=== PATIENT | male | born 1960 | race African-American/Black ===

== ENCOUNTER 2017-02-15 17:09 | Emergency (ER) | payer MEDICAID ==
[~2017-02-15] VITALS: Ht 185.4 cm; Wt 105.0 kg
[~2017-02-15 17:09] MED LIST: AMOXICILLIN/CL875 MG OR; AMOXICILLIN500 MG PO; AUGMENTIN875TAB PO; CEPHALEXIN500 MG OR; FLEXERIL OR; FLEXERIL PO; INDOMETHACIN50 MG OR; JANUVIA100 MG PO; LANTUS SOLOSTAR SC; MEDDOSEPAK PO; METFORMIN500 MG PO; NAPROSYN500 MG OR; NAPROSYN500 MG PO; NAPROXEN500 MG PO; NEXIUM40 M1 PO; NO; NO MEDS; OMEPRAZOLE20 MG OR; OMEPRAZOLE20 MG PO; PENICILLN VK500 M1 OR; ROBITUSSIN AC10 ML PO; SIMVASTATIN20 MG PO; ULTRAM50 M1 PO; ULTRAM50 MG OR; [UNRECOGNIZED DRUG - REMARK]
[2017-02-15] MEDS ORDERED: DILAUDID8 MG PO (17:33)
[2017-02-15 17:47] VITALS: BP 130/80
[2017-02-15] MEDS ORDERED: PERCOCET 5/325M1 TAB PO (18:08)
== END 2017-02-15 18:09 | disposition home or self-care (01) | DRG 552 ==
LOC: ED 17:09
DX: M54.5 Low back pain (principal)

== ENCOUNTER 2017-03-08 00:24 | Emergency (ER) | payer MEDICAID ==
[~2017-03-08] VITALS: Ht 185.4 cm; Wt 91.8 kg
[~2017-03-08 00:24] MED LIST changes: +DILAUDID8 MG PO; +PERCOCET 5/325M1 TAB PO
[2017-03-08 00:39] VITALS: BP 131/85
== END 2017-03-08 00:45 | disposition home or self-care (01) | DRG 605 ==
LOC: ED 00:24
DX: S60.417A Abrasion of left little finger, initial encounter (principal); X58.XXXA Exposure to other specified factors, initial encounter; Y93.89 Activity, other specified; Y92.009 Unspecified place in unspecified non-institutional (private) residence as the place of occurrence of the external cause

== ENCOUNTER 2017-03-20 15:03 | Emergency (ER) | payer SELFPAY ==
[~2017-03-20] VITALS: Ht 185.4 cm; Wt 102.0 kg
[2017-03-20] MEDS ORDERED: FLEXERIL PO (16:24)
[2017-03-20 16:27] VITALS: BP 135/77
== END 2017-03-20 16:32 | disposition home or self-care (01) | DRG 93 ==
LOC: ED 15:03
DX: G89.29 Other chronic pain (principal); M54.5 Low back pain; F17.210 Nicotine dependence, cigarettes, uncomplicated

== ENCOUNTER 2017-05-30 23:40 | Emergency (ER) | payer SELFPAY ==
[~2017-05-30] VITALS: Ht 185.4 cm; Wt 88.2 kg
[2017-05-31] MEDS ORDERED: BACTRIM DS1 TAB PO (00:20)
[2017-05-31 00:30] VITALS: BP 128/87
== END 2017-05-31 00:42 | disposition home or self-care (01) | DRG 728 ==
LOC: ED 23:40
DX: N45.1 Epididymitis (principal); R10.31 Right lower quadrant pain

== ENCOUNTER → 2017-11-18 | Outpatient (REF) | payer MEDICARE, MEDICAID ==
[~2017-11-18] MED LIST changes: +BACTRIM DS1 TAB PO
== END | disposition home or self-care (01) ==
LOC: DI 16:10
PROVIDERS: ATTEND Family Medicine
DX: M79.631 Pain in right forearm (principal)

== ENCOUNTER 2019-05-10 | Emergency (ER) | payer MEDICARE ==
[2019-05-10] MEDS ORDERED: METFORMIN500 MG PO (10:24)
[2019-05-10] MEDS ORDERED: METFORMIN HCL1000 MG PO (10:44)
== END 2019-05-10 11:49 | disposition home or self-care (01) ==
DX: S89.92XA Unspecified injury of left lower leg, initial encounter (principal); E11.9 Type 2 diabetes mellitus without complications; I10 Essential (primary) hypertension; F17.200 Nicotine dependence, unspecified, uncomplicated; Y08.02XA Assault by strike by baseball bat, initial encounter; Y92.009 Unspecified place in unspecified non-institutional (private) residence as the place of occurrence of the external cause
CPT/HCPCS: L1830

== ENCOUNTER 2023-03-25 14:23 | Emergency (ER) | payer MEDICARE ==
[~2023-03-25] VITALS: Ht 185.4 cm; Wt 72.5 kg
[~2023-03-25 14:23] MED LIST changes: +METFORMIN HCL1000 MG PO
[2023-03-25] MEDS ORDERED: KETOROLAC TROMETHAMINE 15 MG/ML SDV IV STA (14:55)
[2023-03-25 15:18] LABS: BASO% 0.3 % (0-3); HEMATOCRIT 38.2 % (39.0-50.0); HEMOGLOBIN 13.1 g/dl (14.0-18.0); IMMATURE GRANULOCYTES 0.3 % (0.0-5.0); LYMPH% 17.9 % (15-41); MEAN CORPUSCULAR HGB 25.7 pG CALC (26.0-32.0); MEAN CORPUSCULAR HGB CONC 34.3 g/dL CAL (32.0-36.0); MONO% 8.2 % (2-13); NEUT# 4.99 thou/uL (1.82-7.42); NEUT% 72.3 % (42-76); RED BLOOD COUNT 5.09 mill/uL (4.70-6.10); RED CELL DISTRI WIDTH 13.3 % (11.5-15.5)
[2023-03-25 15:32] LABS: BUN 19 mg/dL (8-23); BUN/CREATININE RATIO 31 (12-20 (CALC)); CHLORIDE 98 mmol/l (95-108); CREATININE 0.6 mg/dL (0.7-1.3); GFR FOR AFR.AMER. > 60 ML/MIN (>=60 (CALC)); GFR OTHER RACES > 60 ML/MIN (>=60 (CALC)); LIPASE 72 u/l (23-300); SGOT/AST 33 u/l (19-48); SODIUM 136 mmol/l (137-146); TOTAL PROTEIN 6.8 g/dL (6.3-8.2)
[2023-03-25 15:35] LABS: ALKALINE PHOSPHATASE 134 u/l (38-126); ANION GAP 10 (6-22 (CALC)); BILIRUBIN, TOTAL 0.8 mg/dL (0.2-1.3); CARBON DIOXIDE 31 mmol/l (22-30); POTASSIUM 3.1 mmol/l (3.5-5.1)
[2023-03-25 16:31] LABS: URINE BLOOD DIPSTICK Trace-intact (NEGATIVE); URINE GLUCOSE - DIPSTICK >=1000 mg/dL (NEGATIVE); URINE KETONE 15 mg/dL (NEGATIVE); URINE LEUK ESTERASE Negative (NEGATIVE); URINE NITRITE - DIPSTICK Negative (Negative); URINE PH 6.5 (4.5-8.0); URINE PROTEIN - DIPSTICK 100 mg/dL (NEG-TRACE); URINE SPECIFIC GRAVITY 1.025; URINE UROBILINOGEN - DIPSTICK >=8.0 E.U./dL (0.2)
[2023-03-25 16:35] LABS: URINE COLOR Yellow; URINE HYALINE CAST RARE lpf (NONE-RARE); URINE MUCUS FEW hpf (NONE-FEW); URINE RBC 0-2 RBC/hpf (0-5)
[2023-03-25] MEDS ORDERED: POTASSIUM CHLORIDE 20 MEQ/TAB PO ONE (17:40)
[2023-03-25] MEDS ORDERED: SODIUM CHLORIDE 0.9% 1,000 ML IV ONE (17:40)
[2023-03-25] MEDS ORDERED: INSULIN REGULAR (HUMAN) 100 UNIT/ML INJ IV ONE (17:40)
[2023-03-25 18:47] VITALS: BP 134/69
== END 2023-03-25 18:49 | disposition home or self-care (01) ==
LOC: ED 14:23
PROVIDERS: Emergency Medicine
DX: R10.13 Epigastric pain (principal); K86.89 Other specified diseases of pancreas; R16.0 Hepatomegaly, not elsewhere classified; I10 Essential (primary) hypertension; E11.9 Type 2 diabetes mellitus without complications; F17.200 Nicotine dependence, unspecified, uncomplicated
CPT/HCPCS: Q9967